=== PATIENT | male | born 1960 | race Caucasian/White ===

== ENCOUNTER 2018-01-06 10:55 | Day surgery (SDC) | payer OTHER, SELFPAY ==
[2018-01-05 07:17] VITALS: BMI 26.7
[2018-01-06 11:29] VITALS: BP 152/94; PULSE 68; TEMP 36.8; O2SAT 95; BMI 26.7
[2018-01-06] MEDS: LACTATED RINGERS 1,000 ML 42 ML IV (11:45)
[2018-01-06] MEDS: CEFAZOLIN 2 GM/100 ML FROZ.PIGGY IV (13:56)
--- NOTE | 2018-01-06 14:19 | SUR.OPER ---
Supine on padded OR bed, head on pillow, non-operable arm secured on padded arm boards at <90 degrees abduction and operable arm secured on arm table by physician's assist, legs uncrossed, safety belt at thigh, tape over blanket over lower legs.
[2018-01-06] MEDS: BUPIVACAINE 0.5% W/ EPI (PF) 30 ML VIAL INJ (14:35)
[2018-01-06 15:47] VITALS: BP 119/73; PULSE 74; TEMP 36.4; O2SAT 83
[2018-01-06 15:52] VITALS: BP 117/74; PULSE 82; RESP 22; O2SAT 92
[2018-01-06 15:57] VITALS: BP 136/97; PULSE 88; RESP 15; O2SAT 94
--- NOTE | 2018-01-06 15:58 | PM.OP.1 ---
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 PATIENT ALSO HAD PHYSICAL EXAM FINDINGS WELL EMG STUDY POSITIVE FOR CARPAL TUNNEL. Surgeon: Jason Fitzpatrick Application Administrator: Jelly Blackwood Anesthesia Type: General Operative Notes Findings: FAILURE OF THE LOCKING MECHANISM BETWEEN THE RADIAL HEAD AND NECK. SIGNIFICANT METALLOSIS THROUGHOUT THE ELBOW JOINT. LOOSE SCREW MOST LIKELY FROM THE HEAD AND NECK. WELL TENSION BAND WIRING AROUND THE PROXIMAL RADIUS. SIGNIFICANT ARTHRITIC CHANGES AT THE ELBOW JOINT. COMPRESSION OF THE MEDIAN NERVE AT THE CARPAL TUNNEL. Closure Type: primary Specimen(s): other Implants & Drains: ACCU MED LONG STEM AND 22 MM RADIAL HEAD WERE IMPLANTED. Applied: implant(s) Estimated Blood Loss (mL): 5 Blood products transfused: none Tourniquet time (min): 90 Procedure in detail: UNDER SERVICE, PATIENT WAS MET IN THE HOLDING AREA AND HIS OPERATIVE SITE WAS SIGNED AND WITNESSED BY THE OR STAFF. SURGERY WAS ONCE AGAIN DISCUSSED WITH THE PATIENT IN REMAINING QUESTIONS OR CONCERNS HE HAD WERE ANSWERED TO HIS FULL SATISFACTION. PATIENT WAS TAKEN BACK TO THE OPERATING THEATER PLACED ON THE OPERATING TABLE IN A SUPINE POSITION. GREAT CARE WAS TAKEN TO ENSURE THAT ALL BONY PROMINENCES WERE APPROPRIATELY PADDED. WELL-PADDED TOURNIQUET WAS PLACED UP ALONG THE UPPER EXTREMITY. PATIENT RECEIVED HIS ANTIBIOTICS PREOPERATIVELY. TIME-OUT WAS PERFORMED VERIFYING PATIENT'S NAME PROCEDURE AND OPERATIVE SITE. ESMARCH WAS USED TO EXSANGUINATE LIMB THE TOURNIQUET WAS TURNED UP TO 250 MM OF MERCURY. AN ARM HAD BEEN PREVIOUSLY PREPPED AND DRAPED IN THE NORMAL STERILE FASHION. TEN BLADE WAS USED TO INCISE THROUGH SKIN AND FASCIAL TISSUE ON THE LATERAL ASPECT OF THE ELBOW. PATIENT'S PREVIOUS INCISION WAS USED. DEEP KNIFE WAS USED TO CONTINUE DISSECTION UNTIL THE EXTENSOR MECHANISM WAS VISUALIZED. PATIENT HAD PREVIOUS SUTURE MATERIAL THAT WAS STILL INTACT. STEVE APPROACH WAS PERFORMED EXPOSING THE RADIAL HEAD AND NECK. MENTIONED PREVIOUSLY, THERE WAS SIGNIFICANT METALLOSIS THROUGHOUT THE ELBOW JOINT. THE HEAD WAS UNCOUPLED FROM THE NECK. THE HEAD WAS REMOVED. USING A RONGEUR, ELBOW JOINT WAS THOROUGHLY DEBRIDED TRYING TO REMOVE MUCH OF THE METALOSIS POSSIBLE. WERE ABLE TO REMOVE THE LOOSE SCREW WELL THE TENSION BAND WIRING. SOME OF THE BONE AROUND THE STEM WAS ALSO RONGEURED TO HELP LOOSEN UP THE STEMMED IN ORDER TO REMOVE IT. ONCE THAT WAS DONE, WE WERE ABLE TO REMOVE THE ENTIRE STEM WELL. WITH THE IMPLANT REMOVED, IT GAVE US MUCH BETTER VISUALIZATION ALLOWED US TO DO A MORE THOROUGH DEBRIDEMENT. THE WOUND WAS THEN IRRIGATED WITH PULSE LAVAGE. ONCE WE ARE DONE WITH THE IRRIGATION AND DEBRIDEMENT, THE CUTTING GUIDE WAS PLACED AND A SMALL PORTION OF THE REMAINING BONE WAS REMOVED USING A SAW. THE PROXIMAL RADIUS WAS THEN REAMED AND SIZED. THE SIZE 8 PROVIDED THE BEST OVERALL FIT. A TRIAL 8 STEM WELL 22 HEAD WAS PLACED. ELBOW WAS TAKEN THROUGH RANGE OF MOTION. TRIALS WERE REMOVED AND THE WOUND WAS IRRIGATED ONCE AGAIN WITH PULSE LAVAGE. THE FINAL IMPLANT WAS IMPACTED INTO PLACE THE ELBOW WAS TAKEN THROUGH RANGE OF MOTION. NO SIGN OF ANY INSTABILITY OF THE RADIAL HEAD AND NECK AND STEM. FINAL X-RAYS WERE OBTAINED. WOUND WAS THEN CLOSED IN A LAYERED FASHION. THEN RETURNED OUR ATTENTION TO THE CARPAL TUNNEL. FIFTEEN BLADE WAS USED INCISE IN THE CENTER OF THE PALM. WE INCISED THE SKIN AND FASCIAL TISSUE. RETRACTORS WERE PLACED IN THE PALMAR FASCIA WAS SHARPLY INCISED. THIS GAVE US GOOD VISUALIZATION OF THE CARPAL LIGAMENT. SMALL OPENING WAS MADE INTO THE CARPAL LIGAMENT AND A CURVED HEMOSTAT WAS PLACED. FIFTEEN BLADE WAS THEN USED TO SHARPLY INCISE THE CARPAL LIGAMENT DECOMPRESSING THE MEDIAN NERVE. METZENBAUM SCISSORS WERE USED TO COMPLETE THE DECOMPRESSION BOTH DISTALLY AND PROXIMALLY. FULLY DECOMPRESSING THE NERVE. THE WOUND WAS IRRIGATED AND CLOSED WITH NYLON. REST OF THE HAND WAS THEN CLEANED, DRIED, AND DRESSED. PATIENT WAS PLACED INTO A POSTERIOR SPLINT. EXTUBATED TAKEN TO THE PACU IN STABLE CONDITION. IN THE PACU, PATIENT HAD BRISK CAP REFILL TO HIS FINGERS. PATIENT COULD ALSO FLEX AND EXTEND HIS FINGERS WELL HIS THUMB. WELL ABLE TO EXTEND HIS WRIST. Complications: none Condition: stable Disposition: same day surgery Plan for aftercare: SLING JUST FOR COMFORT. PATIENT'S POSTERIOR SPLINT WILL BE REMOVED AT HIS 2 WEEK FOLLOW-UP. PATIENT WILL BE THEN PLACED IN A HINGED ELBOW BRACE COMPLETELY UNLOCKED. THERE BE NO RESTRICTIONS TO FLEXION AND EXTENSION WHILE IN THE ELBOW BRACE.
[2018-01-06 16:07] VITALS: BP 129/86; PULSE 85; RESP 14; O2SAT 91
--- NOTE | 2018-01-06 16:14 | SUR.PHASEI ---
Dr. Gonzalez notified re mild bbb. No new orders.
[2018-01-06] MEDS: OXYCODONE/ACETAMINOPHEN 5/325 TABLET 1 TAB PO (16:23)
[2018-01-06 16:24] VITALS: BP 135/95; PULSE 86; RESP 12; O2SAT 94
== END 2018-01-06 17:00 | disposition home or self-care (01) ==
PROVIDERS: PCP Family Medicine; Visit Provider Orthopaedic Surgery
PROC: (CPT 64721; principal; 2018-01-06 12:45)
PROC: 0RSL04Z Reposition Right Elbow Joint with Internal Fixation Device, Open Approach (ICD-10-PCS; CPT 24366; 2018-01-06 12:45)
PROC: (CPT 24366; 2018-01-06 12:45)
DX: M19.121 Post-traumatic osteoarthritis, right elbow (principal); G56.01 Carpal tunnel syndrome, right upper limb; Z96.621 Presence of right artificial elbow joint; T84.112A Breakdown (mechanical) of internal fixation device of bone of right forearm, initial encounter
CPT/HCPCS: 24366; 64721; 24164; J0690; J1100; J2405; J2704; J3010

== ENCOUNTER → 2020-04-30 09:45 | Outpatient (CLI) | payer OTHER, SELFPAY ==
[2020-05-01 14:22] LABS: COVID19 Sendout Not Detected (Not Detect)
== END ==
PROVIDERS: PCP Student in an Organized Health Care Education/Training Program; Visit Provider Physician Assistant
DX: Z11.59 Encounter for screening for other viral diseases (principal)
CPT/HCPCS: 87635

== ENCOUNTER 2020-05-03 09:30 | Day surgery (SDC) | payer OTHER, SELFPAY ==
--- NOTE | 2020-05-03 | PATH_ITS ---
[facility] Accession Number: [id number] . 01 Material submitted: . colon - 60CM COLON POLYP . 02 Diagnosis: Colon, Polyp 60 cm, Biopsy: Tubular adenoma. MRV 05/07/2020 1239 Local . 02 Electronically signed: . Connie Heller MD, Pathologist NPI- [id number] . 01 Gross description: . 60CM COLON POLYP: Received in formalin is 1 fragment(s) of diaz, soft tissue measuring 0.4 x 0.3 x 0.3 cm submitted entirely in 1 cassette(s) /QBJ 05/04/2020 0759 Local . 02 Pathologist provided ICD-10: D12.6 . 02 CPT . 560267 Performed at: 01 [facility] [address] [id number] MD Dank Becerra MD Phone: [phone] Performed at: 02 [facility] [address] [place], [place] [id number] MD Connie Heller MD Phone: [phone]
[2020-05-03 10:05] VITALS: BP 120/79; PULSE 105; RESP 12; TEMP 37.6; O2SAT 95; BMI 24.7
[2020-05-03] MEDS: SODIUM CHLORIDE 0.9% 1,000 ML 200 ML IV (10:11)
--- NOTE | 2020-05-03 10:37 | PM.HP.1 ---
History of Present Illness History of Present Illness Date Patient Seen: 05/03/20 Time Patient Seen: 10:37 Chief complaint: [facility] [place] Narrative: This is a 60-year-old man with history of hypertension. He has never had a colonoscopy. He denies any melena, hematochezia, unexplained abdominal pain, unexplained weight loss, bowel habit changes. He denies any family history of colon cancers or colon polyps. He says he is otherwise quite healthy. ROS: Thirteen system review is otherwise negative other than as mentioned below and in HPI. PE: GENERAL: Well groomed and cooperative. Appears stated age. Answers questions promptly and appropriately. Vital signs noted. HENT: Normocephalic, atraumatic. Hearing intact. EYES: Conjunctiva pink, sclera white, no periorbital swelling. CARDIOVASCULAR: Regular rate. No pedal edema. RESPIRATORY: Non-tachypneic, breathing comfortably on room air. GASTROINTESTINAL: Abdomen soft and non-distended GENITALURINARY: No flank tenderness. MUSCULOSKELETAL: Equal tone and mass bilaterally. SKIN: Warm, dry, soft, appropriate color for ethnicity. No other lesions, rashes, or wounds. NEURO: Alert and Oriented X 3. No gross sensory deficits, or cognitive issues. PSYCH: Appropriate affect and mood. Patient History Medical History Post-traumatic osteoarthritis of right elbow (Acute) Right carpal tunnel syndrome (Acute) Surgical History History of right elbow replacement (Acute) History of thumb surgery (Acute) Family & Social History Family History Father Hypertension CT (myocardial infarction) CVA (cerebral vascular accident) Social History: household members none Tobacco & Substance use: Smoking Status Never smoker alcohol intake frequency holiday/special occasion Substance Use Type does not use Meds Home Medications and Allergies Home Medications Medication Instructions Recorded Confirmed Type lisinopril 10 mg tablet 10 mg PO QDAY #90 tab 05/16/19 05/03/20 Rx amlodipine 10 mg tablet 10 mg PO Q DAY #90 tab 05/25/19 05/03/20 Rx metoprolol succinate 50 mg 50 mg PO QDAY #90 tab 06/15/19 05/03/20 Rx tablet,extended release 24 hr simvastatin 40 mg tablet 40 mg PO HS #90 tab 06/15/19 05/03/20 Rx Allergies Allergy/AdvReac Type Severity Reaction Status Date / Time No Known Drug Allergies Allergy Verified 05/03/20 09:48 Exam Vital Signs (past 8 hours): - 05/03/20 10:05 Temperature 99.6 F Pulse Rate 105 H Respiratory Rate 12 Blood Pressure 120/79 Pulse Oximetry 95 Oxygen Delivery Method Room Air Assessment & Plan Assessment and plan (1) At average risk for colon cancer: Status: Acute Assessment & Plan narrative: Risks and benefits of screening colonoscopy and possible polypectomy were discussed with the patient including risk of bleeding, perforation, need for additional procedures, risks of anesthesia. The patient desires to proceed with the colonoscopy procedure. COVID-19 COVID-19 status: Negative Result date/Date tested (Pos, Neg/Pending): 04/30/20 Time Spent With Patient Time with patient: 15-24 minutes
--- NOTE | 2020-05-03 10:40 | P.OP.ENDO_ITS ---
Operative Date/Time/Diagnoses Date of procedure: 05/03/20 Time of procedure: 10:41 Pre-op diagnosis: Average risk colon cancer Post-op diagnosis: other (Single adenomatous appearing polyp) Procedure & Clinicians Study performed: Colonoscopy Procedural sedation performed by the endoscopist Polypectomy with cold snare Same procedure as scheduled: Yes Indications: Average risk for colon cancer, never had a screening colonoscopy Surgeon: Tran Arrington Procedure Notes SCOAP/Timeout: Performed Procedure in detail: The patient was brought to the room and placed in left lateral decubitus position with all bony prominences padded. A time-out was performed and then the patient was given procedural sedation starting with 4 mg of Versed and 100 mcg of fentanyl. A total of 6 mg of Versed and 100 micro g of fentanyl were given for the entire procedure. Vitals were monitored throughout the procedure and remained stable. Once adequately sedated, the procedure was begun. A rectal exam was performed revealing no abnormalities. The colonoscope was then introduced to the rectum and advanced to the cecum in the usual fashion. The cecum was identified by the appendiceal orifice, the mucosal tri- fold, and the ileocecal valve. The scope was then retracted while rotating side to side and examining each mucosal fold. A single 8 mm adenomatous polyp was found at 60 cm and removed with cold snare. It was sent to pathology. At the conclusion of the procedure retroflexion was performed and small grade 1-2 internal hemorrhoids without stigmata of bleeding were seen. The scope was then withdrawn from the rectum the procedure was concluded. The patient tolerated the procedure well and was transferred to the PACU in stable condition. Scope withdrawal time: 9 Sedation minutes: 18 Findings: polyp Specimen(s): other (8 mm polyp from 60 cm) Complications: none Impression: Single adenomatous appearing polyp Post-procedure Recommendations: Colonscopy in 10 years (So long as pathology is low-grade) Follow up: as needed Disposition: PACU
[2020-05-03] MEDS: fentaNYL 250 MCG/5 ML INJ IV (10:48)
[2020-05-03] MEDS: MIDAZOLAM 5 MG/5 ML VIAL IV (10:48)
[2020-05-03 11:04] VITALS: BP 110/79; PULSE 91; RESP 16; TEMP 37.4; O2SAT 92
[2020-05-03 11:09] VITALS: BP 109/77; PULSE 90; RESP 18; TEMP 37.4; O2SAT 91
[2020-05-03 11:14] VITALS: BP 106/75; PULSE 82; RESP 169; TEMP 37.1; O2SAT 94
[2020-05-03 11:19] VITALS: BP 115/86; PULSE 87; RESP 14; TEMP 36.8; O2SAT 93
[2020-05-03 11:22] VITALS: BP 120/78; PULSE 84; RESP 16; TEMP 36.7; O2SAT 92
== END 2020-05-03 11:50 | disposition home or self-care (01) ==
PROVIDERS: PCP Student in an Organized Health Care Education/Training Program; Referring Provider Student in an Organized Health Care Education/Training Program; Visit Provider Surgery
PROC: 0DJD8ZZ Inspection of Lower Intestinal Tract, Via Natural or Artificial Opening Endoscopic (ICD-10-PCS; CPT 45378; principal; 2020-05-03 10:45)
DX: Z12.11 Encounter for screening for malignant neoplasm of colon (principal); I10 Essential (primary) hypertension; K64.0 First degree hemorrhoids; D12.6 Benign neoplasm of colon, unspecified
CPT/HCPCS: 45385; 99152; J2250; J3010

== ENCOUNTER → 2020-06-26 16:31 | Outpatient (CLI) | payer OTHER, SELFPAY ==
[2020-06-26 17:03] LABS: BUN Creatinine Ratio 16.8 (6-22); Blood Urea Nitrogen 19 mg/dL (9-20); Calcium 9.4 mg/dL (8.4-10.2); Carbon Dioxide 28 mmol/L (22-32); Chloride 104 mmol/L (98-107); Estimated Glomerular Filt Rate > 60.0 mL/min (>60); Glucose 96 mg/dL (70-100); HEMOLYSIS < 15 (0-50); Sodium 139 mmol/L (137-145)
[2020-06-26 17:27] LABS: Prostate Specific Antigen Scrn 1.25 ng/mL (0.1-4.0)
== END ==
PROVIDERS: PCP Student in an Organized Health Care Education/Training Program; Referring Provider Student in an Organized Health Care Education/Training Program; Visit Provider Student in an Organized Health Care Education/Training Program
DX: I10 Essential (primary) hypertension (principal); N18.1 Chronic kidney disease, stage 1; Z12.5 Encounter for screening for malignant neoplasm of prostate
CPT/HCPCS: 36415; 80048; G0103

== ENCOUNTER → 2021-11-10 14:03 | Outpatient (CLI) | payer OTHER, SELFPAY ==
[2021-11-10 15:01] LABS: BUN Creatinine Ratio 10.2 (6-22); Blood Urea Nitrogen 12 mg/dL (9-20); Calcium 9.4 mg/dL (8.4-10.2); Carbon Dioxide 28 mmol/L (22-32); Chloride 102 mmol/L (98-107); Cholesterol 169 mg/dL (140-199); Estimated Glomerular Filt Rate > 60.0 mL/min (>60); Glucose 110 mg/dL (80-110); HDL Cholesterol 31 mg/dL (40-60); HEMOLYSIS < 15 (0-50); LDL Cholesterol Calculated 60 mg/dL (<100); Potassium 3.9 mmol/L (3.4-5.1); Sodium 141 mmol/L (137-145); Triglycerides 392 mg/dL (35-150)
[2021-11-10 15:32] LABS: Prostate Specific Antigen Scrn 1.92 ng/mL (0.1-4.0)
== END ==
PROVIDERS: PCP Student in an Organized Health Care Education/Training Program; Referring Provider Student in an Organized Health Care Education/Training Program; Visit Provider Student in an Organized Health Care Education/Training Program
DX: I10 Essential (primary) hypertension (principal); E78.00 Pure hypercholesterolemia, unspecified; Z12.5 Encounter for screening for malignant neoplasm of prostate
CPT/HCPCS: 36415; 80048; 80061; G0103

== ENCOUNTER → 2023-05-05 08:48 | Outpatient (CLI) | payer SELFPAY ==
[2023-05-05 09:44] LABS: Alanine Aminotransferase 23 IU/L (<50); Albumin 4.3 g/dL (3.5-5.0); Albumin Globulin Ratio 1.3 (1.0-2.8); Alkaline Phosphatase 82 U/L (38-126); Aspartate Aminotransferase 25 IU/L (17-59); BUN Creatinine Ratio 16.2 (6-22); Bilirubin Total 0.8 mg/dL (0.2-1.3); Blood Urea Nitrogen 23 mg/dL (9-20); Calcium 9.3 mg/dL (8.4-10.2); Carbon Dioxide 29 mmol/L (22-32); Chloride 100 mmol/L (98-107); Estimated Glomerular Filt Rate 56 mL/min (>60); Globulin 3.4 g/dL (1.7-4.1); Glucose 107 mg/dL (80-110); HEMOLYSIS < 15 (0-50); Potassium 4.2 mmol/L (3.4-5.1); Sodium 138 mmol/L (137-145); Total Protein 7.7 g/dL (6.3-8.2)
[2023-05-05 10:13] LABS: Prostate Specific Antigen Scrn 1.72 ng/mL (0.1-4.0)
== END ==
PROVIDERS: Referring Provider Physician Assistant; Visit Provider Physician Assistant
DX: I10 Essential (primary) hypertension (principal); Z12.5 Encounter for screening for malignant neoplasm of prostate
CPT/HCPCS: 36415; 80053; G0103

== ENCOUNTER → 2023-06-17 07:23 | Outpatient (CLI) | payer SELFPAY ==
[2023-06-17 08:42] LABS: Alanine Aminotransferase 23 IU/L (<50); Albumin Globulin Ratio 1.2 (1.0-2.8); Alkaline Phosphatase 93 U/L (38-126); Aspartate Aminotransferase 24 IU/L (17-59); BUN Creatinine Ratio 12.3 (6-22); Bilirubin Total 0.9 mg/dL (0.2-1.3); Blood Urea Nitrogen 16 mg/dL (9-20); Calcium 8.8 mg/dL (8.4-10.2); Carbon Dioxide 27 mmol/L (22-32); Chloride 101 mmol/L (98-107); Cholesterol 138 mg/dL (140-199); Estimated Glomerular Filt Rate > 60 mL/min (>60); Globulin 3.4 g/dL (1.7-4.1); Glucose 105 mg/dL (80-110); HDL Cholesterol 34 mg/dL (40-60); HEMOLYSIS < 15 (0-50); LDL Cholesterol Calculated 76 mg/dL (<100); Potassium 3.7 mmol/L (3.4-5.1); Sodium 139 mmol/L (137-145); Total Protein 7.4 g/dL (6.3-8.2); Triglycerides 142 mg/dL (35-150)
== END ==
PROVIDERS: Referring Provider Physician Assistant; Visit Provider Physician Assistant
DX: E78.2 Mixed hyperlipidemia (principal)
CPT/HCPCS: 36415; 80053; 80061

== ENCOUNTER → 2024-08-23 10:04 | Outpatient (CLI) | payer SELFPAY ==
[2024-08-23 10:35] LABS: Add Manual Diff / Slide Review NO; Basophils Absolute Auto 100 /uL (0-100); Basophils Percent Auto 0.7 % (0-2); Eosinophils Absolute Auto 100 /uL (0-450); Eosinophils Percent Auto 1.4 % (2-4); Hematocrit 45.9 % (41-53); Hemoglobin 15.5 g/dL (13.5-17.5); Lymphocytes Absolute Auto 2300 /uL (1100-4500); Lymphocytes Percent Auto 23.1 % (25-40); Mean Corpuscular HGB Conc 33.8 % (30-36); Mean Corpuscular Hemoglobin 28.8 PG (26-34); Mean Corpuscular Volume 85.3 fL (80-100); Monocytes Absolute Auto 700 /uL (0-900); Monocytes Percent Auto 7.2 % (3-14); Neutrophils Absolute Auto 6700 /uL (1500-7000); Neutrophils Percent Auto 67.6 % (50-75); Platelet Count 287 X10^3/uL (150-400); Red Blood Cell Count 5.38 X10^6/uL (4.5-5.9); Red Cell Distribution Width 14.2 % (11.6-14.8); White Blood Cell Count 9.9 X10^3/uL (4.5-11.0)
[2024-08-23 10:53] LABS: Alanine Aminotransferase 30 IU/L (<50); Albumin 4.5 g/dL (3.5-5.0); Albumin Globulin Ratio 1.2 (1.0-2.8); Alkaline Phosphatase 124 U/L (38-126); Aspartate Aminotransferase 33 IU/L (17-59); Blood Urea Nitrogen 11 mg/dL (9-20); Calcium 9.3 mg/dL (8.4-10.2); Carbon Dioxide 28 mmol/L (22-32); Chloride 102 mmol/L (98-107); Cholesterol 149 mg/dL (140-199); Estimated Glomerular Filt Rate 57 mL/min (>60); Globulin 3.7 g/dL (1.7-4.1); Glucose 118 mg/dL (80-110); HDL Cholesterol 38 mg/dL (40-60); HEMOLYSIS < 15 (0-50); LDL Cholesterol Calculated 84 mg/dL (<100); Sodium 140 mmol/L (137-145); Total Protein 8.2 g/dL (6.3-8.2); Triglycerides 133 mg/dL (35-150)
== END ==
LOC: LAB 10:09
PROVIDERS: PCP Nurse Practitioner Family; Referring Provider Nurse Practitioner Family; Visit Provider Nurse Practitioner Family
DX: E78.2 Mixed hyperlipidemia (principal); I10 Essential (primary) hypertension; T84.01 Broken internal joint prosthesis
CPT/HCPCS: 36415; 80053; 80061; 85025